=== PATIENT | male | born 1955 | race Caucasian/White ===

== ENCOUNTER 2018-07-24 10:38 | Emergency (ER) | payer OTHER ==
[2018-07-24 11:11] LABS: ADD MAN DIFF? NO
[2018-07-24 11:14] LABS: BASOPHILS % 0.3 % (0.0-2.0); EOSINOPHILS # 0.2 10^3/ul (0.0-0.5); HEMATOCRIT 41.5 % (42.0-52.0); HEMOGLOBIN 13.3 g/dl (14.0-18.0); LYMPHOCYTES # 1.2 10^3/ul (0.8-2.9); LYMPHOCYTES % 13.3 % (15.0-51.0); MEAN CORPUSCULAR HEMOGLOBIN 29.3 pg (29.0-33.0); MEAN CORPUSCULAR VOLUME 91.4 fl (82.0-101.0); MEAN PLATELET VOLUME 10.5 fl (7.4-10.4); MONOCYTE # 0.7 10^3/ul (0.3-0.9); MONOCYTES % 7.5 % (0.0-11.0); NEUTROPHILS % 76.2 % (39.0-77.0); PLATELET COUNT 338 10^3/UL (140-415); RED BLOOD COUNT 4.54 10^6/ul (4.70-6.10)
[2018-07-24 11:14] LABS: WHITE BLOOD COUNT 9.1 10^3/ul (4.8-10.8)
[2018-07-24] MEDS: SOD CHLORIDE 0.9% 500 ML IV (11:31)
[2018-07-24 11:37] LABS: ALANINE AMINOTRANSFERASE 15 IU/L (13-69); ALBUMIN 3.7 g/dl (3.3-4.9); ALBUMIN/GLOBULIN RATIO 1.02; ALKALINE PHOSPHATASE 76 IU/L (42-121); ANION GAP 14 (8-16); ASPARTATE AMINO TRANSFERASE 17 IU/L (15-46); BILIRUBIN,INDIRECT 0.1 mg/dl (0-1.1); BILIRUBIN,TOTAL 0.1 mg/dl (0.2-1.3); BLOOD UREA NITROGEN 13 mg/dl (7-20); CALCIUM 9.3 mg/dl (8.4-10.2); CARBON DIOXIDE 26 mmol/L (21-31); CHLORIDE 106 mmol/L (97-110); CREATININE 1.34 mg/dl (0.61-1.24); GLUCOSE 173 mg/dl (70-220); LIPASE 59 U/L (23-300); POTASSIUM 4.7 mmol/L (3.5-5.1); SODIUM 141 mmol/L (135-144); TOTAL PROTEIN 7.3 g/dl (6.1-8.1)
[2018-07-24 11:48] LABS: TROPONIN-I < 0.012 ng/ml (0.000-0.120)
== END 2018-07-24 12:44 | disposition home or self-care (01) ==
LOC: E/R 12:44
DX: R07.9 Chest pain, unspecified (principal); E86.0 Dehydration; J44.9 Chronic obstructive pulmonary disease, unspecified; I10 Essential (primary) hypertension; I25.10 Atherosclerotic heart disease of native coronary artery without angina pectoris; Z79.82 Long term (current) use of aspirin; Z85.01 Personal history of malignant neoplasm of esophagus
CPT/HCPCS: 36415; 71045; 80053; 83690; 84484; 85025; 93005; 99285-25